=== PATIENT | male | born 1980 | race Caucasian/White ===

== ENCOUNTER 2020-11-17 17:04 | Emergency (ER) | payer BC, OTHER ==
[2020-11-17] MEDS ORDERED: Acetaminophen/oxyCODONE 325-5 MG Tab PO ONE (17:22)
--- NOTE | 2020-11-17 17:24 | EDM.PDOC ---
ED HPI GENERAL MEDICAL PROBLEM - General Chief Complaint: Upper Extremity Injury/Pain Stated Complaint: RT ARM INJURY Time Seen by Provider: 11/17/20 17:12 Source of Information: Reports: Patient History Limitations: Reports: No Limitations - History of Present Illness INITIAL COMMENTS - FREE TEXT/NARRATIVE: 39-year-old male presents today for right shoulder pain. Patient dates he was at work he tripped over a beam and as she landed on his left side but somehow his right shoulder is hurting patient states that he cannot move the right shoulder and stuck above his head. Patient did not directly landed on her arm have any injuries to it. Patient has sensation arm able to move his elbow down with his fingers has pain when trying to raise the shoulder. Patient has any o ther injuries Right Shoulder Pain Score (Numeric/FACES): 10 - Related Data Allergies Allergy/AdvReac Type Severity Reaction Status Date / Time Penicillins Allergy Hives Verified 11/17/20 17:44 Home Meds: Home Meds . [No Known Home Meds] 11/17/20 [History] Review of Systems - Review of Systems Review Of Systems: See Below Constitutional: Reports: No Symptoms Eyes: Reports: No Symptoms Ears: Reports: No Symptoms Nose: Reports: No Symptoms Mouth/Throat: Reports: No Symptoms Respiratory: Reports: No Symptoms Cardiovascular: Reports: No Symptoms GI/Abdominal: Reports: No Symptoms Genitourinary: Reports: No Symptoms Musculoskeletal: Reports: Shoulder Pain Skin: Reports: No Symptoms Neurological: Reports: No Symptoms Psychiatric: Reports: No Symptoms ED EXAM, GENERAL - Physical Exam Exam: See Below Exam Limited By: No Limitations General Appearance: Alert, WD/WN, No Apparent Distress Respiratory/Chest: No Respiratory Distress, Lungs Clear Cardiovascular: Normal Peripheral Pulses, Regular Rate, Rhythm Extremities: No: Normal Range of Motion, Non-Tender Neurological: Alert, Oriented ED TRAUMA EXTREMITY PROCEDURES - Joint Reduction Right Shoulder Sedation: Conscious Sedation Pre-Procedure NV Status: Normal Post-Procedure NV Status: Normal Technique: Other Post-Reduction Imaging: Completely Reduced Joint Reduction Complications: No Course - Vital Signs Last Recorded V/S: Last Vital Signs Temp 208.8 F H 11/17/20 17:14 Pulse 89 11/17/20 17:14 Resp 20 11/17/20 17:14 BP 142/89 H 11/17/20 17:14 Pulse Ox 99 11/17/20 17:14 - Orders/Labs/Meds Orders: Active Orders 24 hr Category Date Time Status Shoulder Comp Rt [CR] Stat Exams 11/17/20 18:59 Ordered Meds: Medications Discontinued Medications Generic Name Dose Route Start Last Admin Trade Name Jennifer PRN Reason Stop Dose Admin Fentanyl Confirm 11/17/20 18:41 Fentanyl 250 Mcg/5 Ml Sdv Administered 11/17/20 18:42 Dose 250 mcg .ROUTE .STK-MED ONE Hydromorphone HCl Confirm 11/17/20 18:41 Hydromorphone 2 Mg/Ml Syringe Administered 11/17/20 18:42 Dose 2 mg .ROUTE .STK-MED ONE Lidocaine Confirm 11/17/20 18:41 Lidocaine 2% 5 Ml Sdv Administered 11/17/20 18:42 Dose 5 ml .ROUTE .STK-MED ONE Midazolam HCl Confirm 11/17/20 18:41 Midazolam 1 Mg/Ml 2 Ml Sdv Administered 11/17/20 18:42 Dose 2 mg .ROUTE .STK-MED ONE Oxycodone/Acetaminophen 1 tab 11/17/20 17:22 11/17/20 17:52 Acetaminophen/Oxycodone 325-5 Mg Tab PO 11/17/20 17:23 1 tab ONETIME ONE Administration Propofol Confirm 11/17/20 18:41 Propofol 200 Mg/20 Ml Sdv Administered 11/17/20 18:42 Dose 400 mg .ROUTE .STK-MED ONE - Re-Assessments/Exams Free Text/Narrative Re-Assessment/Exam: 11/17/20 19:03 What you are ordering right arm sling Why you are ordering it support after eduction How it will benefit patient support and pain relief How long is patient to use it 5days Departure - Departure Time of Disposition: 19:02 Disposition: Still A Patient 30 Condition: Good Clinical Impression: Shoulder dislocation - Discharge Information *PRESCRIPTION DRUG MONITORING PROGRAM REVIEWED*: Not Applicable *COPY OF PRESCRIPTION DRUG MONITORING REPORT IN PATIENT MEENA: Not Applicable Instructions: Shoulder Dislocation, [id number] Forms: ED Department Discharge Additional Instructions: The following information is given to patients seen in the emergency department who are being discharged to home. This information is to outline your options for follow-up care. We provide all patients seen in our emergency department with a follow-up referral. The need for follow-up, as well as the timing and circumstances, are variable depending upon the specifics of your emergency department visit. If you don't have a primary care physician on staff, we will provide you with a referral. We always advise you to contact your personal physician following an emergency department visit to inform them of the circumstance of the visit and for follow-up with them and/or the need for any referrals to a consulting specialist. The emergency department will also refer you to a specialist when appropriate. This referral assures that you have the opportunity for follow-up care with a specialist. All of these measure are taken in an effort to provide you with optimal care, which includes your follow-up. Under all circumstances we always encourage you to contact your private physician who remains a resource for coordinating your care. When calling for follow-up care, please make the office aware that this follow-up is from your recent emergency room visit. If for any reason you are refused follow-up, please contact the [facility] Emergency Department at and asked to speak to the emergency department charge nurse. Please follow up with your primary care physician. If you do not have a primary care physician, see below: [facility] [address] [place] [id number] [facility] [address] [place] [id number] You were seen today for dislocation of your shoulder we were able to reduce it by giving you some medication which had a sling. Repeat x-rays show that you have a good position. We will place you in a sling. Will to follow with orthopedic doctors and your primary care physician. You have any numbness tingling to your arm please return to the ED. Sepsis Event Note (ED) - Evaluation Sepsis Screening Result: No Definite Risk - Focused Exam Vital Signs: Vital Signs Temp Pulse Resp BP Pulse Ox 11/17/20 17:14 208.8 F H 89 20 142/89 H 99 - My Orders Last 24 Hours: My Active Orders 11/17/20 18:59 Shoulder Comp Rt [CR] Stat - Assessment/Plan Last 24 Hours: My Active Orders 11/17/20 18:59 Shoulder Comp Rt [CR] Stat Plan: Patient is a 39-year-old presents today for right shoulder pain. Patient states he fell on the left side with some mild right arm stuck above his head. Will obtain x-ray provide pain control and reassess.
--- NOTE | 2020-11-17 18:30 | CR ---
Indication: Shoulder pain, deformity, possible dislocation Technique: Three views of the right shoulder Comparison: None Findings/Impression: There is anterior dislocation of the humeral head from the glenoid fossa, best demonstrated on the axillary view. No underlying fracture is appreciated, although suboptimal positioning somewhat limits assessment. Follow-up three-views recommended following reduction. Dictated by Briseyda Alston MD @ Nov 17 2020 6:25PM Signed by Dr. Briseyda Alston @ Nov 17 2020 6:28PM
[2020-11-17] MEDS ORDERED: Propofol 200 MG/20 ML SDV ONE (18:41)
[2020-11-17] MEDS ORDERED: fentaNYL 250 MCG/5 ML SDV ONE (18:41)
[2020-11-17] MEDS ORDERED: Midazolam 1 MG/ML 2 ML SDV ONE (18:41)
[2020-11-17] MEDS ORDERED: Lidocaine 2% 5 ML SDV ONE (18:41)
[2020-11-17] MEDS ORDERED: HYDROmorphone 2 MG/ML Syringe ONE (18:41)
--- NOTE | 2020-11-17 18:49 | PCM.PREANE ---
Preanesthetic Assessment - Procedure Proposed Procedure: MAC sedation for closed reduction of shoulder dislocation - Anesthesia/Transfusion/Family Hx Anesthesia History: Prior Anesthesia Without Reaction (Previous brain surgery without anesthesia complications) Family History of Anesthesia Reaction: No Transfusion History: Unknown (Pt states he may have, but doesn't remember) Intubation History: Unknown (Denies history of sore throat after anesthesia, denies known difficult airway) - Review of Systems General: No Symptoms Pulmonary: No Symptoms Cardiovascular: No Symptoms Gastrointestinal: No Symptoms Neurological: No Symptoms, Seizure (History of seizures, took his medication at lunchtime) Other: Reports: None (Acute right shoulder pain) - Physical Assessment NPO Status Date: 11/17/20 NPO Status Time: 13:00 Vital Signs: Last Vital Signs Temp 98.2 C H 11/17/20 17:14 Pulse 89 11/17/20 17:14 Resp 20 11/17/20 17:14 BP 142/89 H 11/17/20 17:14 Pulse Ox 99 11/17/20 17:14 Height: 1.83 m Weight: 90.718 kg ASA Class: 2 Mental Status: Alert & Oriented x3 Dentition: Reports: Normal Dentition Thyro-Mental Finger Breadths: 3 Mouth Opening Finger Breadths: 3 ROM/Head Extension: Full Lungs: Clear to Auscultation, Normal Respiratory Effort Cardiovascular: Regular Rate, Regular Rhythm - Allergies Allergies/Adverse Reactions: Allergies Allergy/AdvReac Type Severity Reaction Status Date / Time Penicillins Allergy Hives Verified 11/17/20 17:44 - Anesthesia Plan Free Text/Narrative:: Plan for sedation discussed with patient and ER MD. All questions answered and concerns addressed, discussed risks/benefits/alternatives. Consent signed by patient and witnessed by RN - Acknowledgements Anesthesia Type Planned: MAC Pt an Appropriate Candidate for the Planned Anesthesia: Yes Alternatives and Risks of Anesthesia Discussed w Pt/Guardian: Yes Pt/Guardian Understands and Agrees with Anesthesia Plan: Yes PreAnesthesia Questionnaire HEENT History: Reports: None Cardiovascular History: Reports: None Respiratory History: Reports: None Gastrointestinal History: Reports: None Genitourinary History: Reports: None Musculoskeletal History: Reports: None Neurological History: Reports: Seizure Psychiatric History: Reports: None Endocrine/Metabolic History: Reports: None Hematologic History: Reports: None Immunologic History: Reports: None Oncologic (Cancer) History: Reports: None Dermatologic History: Reports: None - Infectious Disease History Infectious Disease History: Reports: Chicken Pox - Past Surgical History Head Surgeries/Procedures: Reports: None Cardiovascular Surgical History: Reports: None GI Surgical History: Reports: None Neurological Surgical History: Reports: None - SUBSTANCE USE Tobacco Use Within Last Twelve Months: Cigarettes Recreational Drug Type: Reports: Marijuana/Hashish - HOME MEDS Home Medications: Home Meds . [No Known Home Meds] 11/17/20 [History] - CURRENT (IN HOUSE) MEDS Current Meds: Current Medications Discontinued Medications Fentanyl (Fentanyl 250 Mcg/5 Ml Sdv) Confirm Administered Dose 250 mcg .ROUTE .STK-MED ONE Stop: 11/17/20 18:42 Hydromorphone HCl (Hydromorphone 2 Mg/Ml Syringe) Confirm Administered Dose 2 mg .ROUTE .STK-MED ONE Stop: 11/17/20 18:42 Lidocaine (Lidocaine 2% 5 Ml Sdv) Confirm Administered Dose 5 ml .ROUTE .STK-MED ONE Stop: 11/17/20 18:42 Midazolam HCl (Midazolam 1 Mg/Ml 2 Ml Sdv) Confirm Administered Dose 2 mg .ROUTE .STK-MED ONE Stop: 11/17/20 18:42 Oxycodone/Acetaminophen (Acetaminophen/Oxycodone 325-5 Mg Tab) 1 tab PO ONETIME ONE Stop: 11/17/20 17:23 Last Admin: 11/17/20 17:52 Dose: 1 tab Documented by: Propofol (Propofol 200 Mg/20 Ml Sdv) Confirm Administered Dose 400 mg .ROUTE .STK-MED ONE Stop: 11/17/20 18:42
--- NOTE | 2020-11-17 19:42 | PCM.SN.2 ---
- Free Text/Narrative Note: Anesthesia time 1838- 1925 MAC sedation for closed reduction of shoulder dislocation as requested by Dr. Gamez. [id number]: Pt interview, H&P. Discussed risks/benefits/alternatives of MAC anesthesia. Pt consented with RN witness. ER MD agrees to anesthetic plan. 1849: ED RN and MD bedside. 5-lead EKG, cont. pulse ox., NC at 6L with ETCO2, and NIBP on LUE cycled every 3 min during procedure, every 5 min after. NS to peripheral IV (left). 1854: baseline VS BP 150/98, HR 88, SAT 96%, NSR. 1857: 2mg versed and 100 mcg fentanyl given IV 1858: 50mg propofol IV 1900: Procedure start 1902: Procedure end Total IVF 100ml. Pt maintained spontaneous ventilation with ETCO2 and stable VS throughout. VS as follows: 0 BP 155/99, HR 87, SAT 95%, NSR 1902 BP 149/99, HR 90, SAT 94%, NSR 1904 BP 144/105, HR 90, SAT 96%, NSR 1909 BP 142/90, HR 93, SAT 94%, NSR (Pt awake and verbal) 1914 BP 138/97, HR 94, SAT 97%, NSR 1919 BP 128/89, HR 84, SAT 96%, NSR (Alert and oriented x 3) 1924 BP 140/85, HR 92, SAT 96%, NSR 1925: Full report given to ED RN and MD for transfer of care.
--- NOTE | 2020-11-17 20:14 | CR ---
INDICATION: Post reduction right shoulder. COMPARISON: Radiographic exam of the right shoulder same day. TECHNIQUE: Two view study right shoulder. FINDINGS: No evidence of dislocation identified at this time. Hill-Sachs defect identified secondary to recurrent anterior dislocation. IMPRESSION: 1. No dislocation at this time. 2. Hill-Sachs defect secondary to recurrent anterior dislocation. Dictated by Corbin Burr MD @ Nov 17 2020 8:11PM Signed by Dr. Corbin Burr @ Nov 17 2020 8:14PM
== END 2020-11-17 20:54 | disposition still patient (30) ==
LOC: MW.ED 17:04
DX: S43.014A Anterior dislocation of right humerus, initial encounter (principal); Z88.0 Allergy status to penicillin; W01.0XXA Fall on same level from slipping, tripping and stumbling without subsequent striking against object, initial encounter; Y99.0 Civilian activity done for income or pay
CPT/HCPCS: 23650; 73030; 99152; 99283; A9270; J2250; J2704; J3010; 01620; J1170

== ENCOUNTER 2022-05-24 08:23 | Emergency (ER) | payer OTHER ==
[2022-05-24] MEDS ORDERED: Ketorolac 30 MG/ML SDV IM STA (09:08)
== END 2022-05-24 11:55 | disposition home or self-care (01) ==
LOC: MW.ED 08:23
DX: S62.001A Unspecified fracture of navicular [scaphoid] bone of right wrist, initial encounter for closed fracture (principal); S80.811A Abrasion, right lower leg, initial encounter; R56.9 Unspecified convulsions; Z72.0 Tobacco use; Z88.0 Allergy status to penicillin; Z79.899 Other long term (current) drug therapy; W11.XXXA Fall on and from ladder, initial encounter; Y92.89 Other specified places as the place of occurrence of the external cause; Y99.0 Civilian activity done for income or pay
CPT/HCPCS: 73110; 73130; 73590; 96372; 99283; J1885

== ENCOUNTER 2023-12-23 20:12 | Emergency (ER) | payer SELFPAY | END 2023-12-23 21:10 | disposition left against medical advice (07) | LOC: MW.ED 20:12 | DX: M24.411 Recurrent dislocation, right shoulder (principal); W10.9XXA Fall (on) (from) unspecified stairs and steps, initial encounter; Y93.01 Activity, walking, marching and hiking; Z79.899 Other long term (current) drug therapy; Z88.0 Allergy status to penicillin; Z75.8 Other problems related to medical facilities and other health care | CPT/HCPCS: 23650; 73030-RT; 99283; 99283-25 ==

== ENCOUNTER 2023-12-31 08:52 | Emergency (ER) | payer SELFPAY ==
[2023-12-31] MEDS: Ondansetron 4 MG/2 ML SDV IVPUSH ONE (09:17)
[2023-12-31] MEDS: HYDROmorphone 1 MG/ML Syringe IVPUSH ONE ×2 (09:17→09:37)
[2023-12-31] MEDS: Propofol 200 MG/20 ML SDV IVPUSH ONE ×2 (10:29)
== END 2023-12-31 11:55 | disposition home or self-care (01) ==
LOC: MW.ED 08:52
DX: S43.004A Unspecified dislocation of right shoulder joint, initial encounter (principal); Z88.0 Allergy status to penicillin; Z79.899 Other long term (current) drug therapy; Z75.8 Other problems related to medical facilities and other health care; W22.8XXA Striking against or struck by other objects, initial encounter
CPT/HCPCS: 23650; 73030; 96374; 96375; 99152; 99283; J1170; J2405; J2704; 99284

== ENCOUNTER 2024-02-07 01:43 | Emergency (ER) | payer SELFPAY ==
[2024-02-07] MEDS: Propofol 200 MG/20 ML SDV IVPUSH ONE ×2 (02:58→03:50)
[2024-02-07] MEDS: Propofol 200 MG/20 ML SDV ONE (03:44)
[2024-02-07] MEDS: Ketamine 500 mg/10 ML MDV IV ONE (03:45)
[2024-02-07] MEDS: Propofol 200 MG/20 ML SDV IVPUSH STA (03:48)
[2024-02-07] MEDS: Ketamine 500 mg/10 ML MDV IV STA (03:51)
[2024-02-07] MEDS: Ketamine 500 mg/10 ML MDV IM ONE (03:51)
== END 2024-02-07 05:03 | disposition home or self-care (01) ==
LOC: MW.ED 01:43
DX: M24.411 Recurrent dislocation, right shoulder (principal); Z88.0 Allergy status to penicillin
CPT/HCPCS: 23650; 73030; 99152; 99153; 99283; J2704; J3490; 99284

== ENCOUNTER 2024-02-08 11:09 | Emergency (ER) | payer SELFPAY ==
[2024-02-08] MEDS: Sodium Chloride 0.9% 2.5 ML Syringe FLUSH PRN (11:37)
[2024-02-08] MEDS: Ondansetron 4 MG/2 ML SDV IVPUSH ONE (11:37)
[2024-02-08] MEDS: Sodium Chloride 0.9% 10 ML Syringe FLUSH PRN (11:37)
[2024-02-08] MEDS: HYDROmorphone 1 MG/ML Syringe IVPUSH ONE (11:37)
[2024-02-08 11:46] LABS: HEMATOCRIT 44.9 % (42.0-52.0); HEMOGLOBIN 15.6 g/dL (14.0-18.0); MEAN CORPUSCULAR HEMOGLOBIN 30.5 pg (28.0-32.0); MEAN CORPUSCULAR HGB CONC 34.7 g/dL (32.0-36.0); MEAN CORPUSCULAR VOLUME 87.7 fL (83.0-99.0); MEAN PLATELET VOLUME 9.7 fL (9.4-12.4); PLATELET COUNT,PLT 361 K/uL (150-400); RED BLOOD CELL COUNT 5.12 M/uL (4.52-5.90); WHITE BLOOD CELL COUNT,WBC 14.75 K/uL (3.9-11.3)
[2024-02-08 11:59] LABS: EOSINOPHILS ABSOLUTE MAN 0.44 K/uL (0.00-0.45); EOSINOPHILS PERCENT MAN 3 % (0-6); LYMPHOCYTES ABSOLUTE MAN 3.98 K/uL (1.00-4.80); LYMPHOCYTES PERCENT MAN 27 % (24-44); MONOCYTES ABSOLUTE MAN 1.77 K/uL (0.00-0.80); MONOCYTES PERCENT MAN 12 % (0-8); SEG NEUTROPHILS ABSOLUTE MAN 8.56 K/uL (1.80-7.70); SEG NEUTROPHILS PERCENT MAN 58 % (41-71)
[2024-02-08 12:01] LABS: CALCIUM 9.2 mg/dL (8.5-10.1); CARBON DIOXIDE,CO2 27.2 mmol/L (21.0-32.0); CREATININE 1.1 mg/dL (0.8-1.3); EST CRCL DRUG DOSING (CG) 96.02 mL/min
[2024-02-08] MEDS: HYDROmorphone 0.5 MG/0.5 ML Syringe IVPUSH ONE (12:14)
[2024-02-08] MEDS: Sodium Chloride 0.9% 1,000 ML IV ONE (12:52)
[2024-02-08] MEDS: Propofol 200 MG/20 ML SDV IVPUSH ONE ×2 (12:53→13:42)
== END 2024-02-08 14:17 | disposition home or self-care (01) ==
LOC: MW.ED 11:09
DX: M24.411 Recurrent dislocation, right shoulder (principal); Z88.0 Allergy status to penicillin
CPT/HCPCS: 23650; 36415; 73020; 80048; 85025; 96374; 96375; 96376; 99152; 99283; J1170; J2405; J2704; J3490; J7030

== ENCOUNTER 2024-02-20 11:47 | Emergency (ER) | payer SELFPAY ==
[2024-02-20 12:20] LABS: BASOPHILS PERCENT AUTO 0.8 % (0.0-1.0); EOSINOPHILS ABSOLUTE AUTO 0.21 K/uL (0.00-0.45); EOSINOPHILS PERCENT AUTO 1.6 % (0.0-6.0); HEMATOCRIT 49.6 % (42.0-52.0); HEMOGLOBIN 16.7 g/dL (14.0-18.0); IMMATURE GRAN ABSOLUTE AUTO 0.13 K/uL (0.00-0.05); LYMPHOCYTES ABSOLUTE AUTO 4.95 K/uL (1.00-4.80); LYMPHOCYTES PERCENT AUTO 37.7 % (24.0-44.0); MEAN CORPUSCULAR HEMOGLOBIN 30.6 pg (28.0-32.0); MEAN CORPUSCULAR HGB CONC 33.7 g/dL (32.0-36.0); MEAN CORPUSCULAR VOLUME 90.8 fL (83.0-99.0); MEAN PLATELET VOLUME 9.9 fL (9.4-12.4); MONOCYTES ABSOLUTE AUTO 1.37 K/uL (0.00-0.80); MONOCYTES PERCENT AUTO 10.4 % (0.0-8.0); NEUTROPHILS ABSOLUTE AUTO 6.38 K/uL (1.80-7.70); NEUTROPHILS PERCENT AUTO 48.5 % (41.0-71.0); PLATELET COUNT,PLT 460 K/uL (150-400); RED BLOOD CELL COUNT 5.46 M/uL (4.52-5.90); WHITE BLOOD CELL COUNT,WBC 13.14 K/uL (3.9-11.3)
[2024-02-20] MEDS: Sodium Chloride 0.9% 1,000 ML IV ONE (12:31)
[2024-02-20 12:49] LABS: A/G RATIO 1.1 (0.9-1.6); ALANINE AMINOTRANSFERASE,ALT 41 IU/L (14-63); ALBUMIN 4.2 g/dL (3.4-5.0); ALKALINE PHOSPHATASE 60 U/L (46-116); ASPARTATE AMNIOTRANSFERASE,AST 27 IU/L (15-37); BILIRUBIN TOTAL 0.8 mg/dL (0.2-1.0); BLOOD UREA NITROGEN,BUN 15 mg/dL (7.0-18.0); CALCIUM 9.1 mg/dL (8.5-10.1); CARBON DIOXIDE,CO2 18.3 mmol/L (21.0-32.0); CHLORIDE,CL 101 mmol/L (98-107); CREATINE KINASE,CK 215 U/L (26-308); CREATININE 1.5 mg/dL (0.8-1.3); EST CRCL DRUG DOSING (CG) 70.41 mL/min; ETHANOL BLOOD MEDICAL <3 mg/dL; GLUCOSE RANDOM 107 mg/dL (74-106); MAGNESIUM 2.5 mg/dL (1.8-2.4); POTASSIUM,K 3.9 mmol/L (3.5-5.1); SODIUM,NA 140 mmol/L (136-148)
[2024-02-20 12:52] LABS: ESTIMATED GFR 59 mL/min (>60)
[2024-02-20] MEDS: LORazepam 2 MG/ML SDV IVPUSH ONE (13:51)
[2024-02-20 14:47] LABS: APPEARANCE,URINE CLEAR; BILIRUBIN,URINE NEGATIVE (NEGATIVE); COLOR,URINE YELLOW; GLUCOSE,URINE NEGATIVE (NEGATIVE); KETONES,URINE NEGATIVE (NEGATIVE); LEUKOCYTE ESTERASE,URINE NEGATIVE (NEGATIVE); NITRITE,URINE NEGATIVE (NEGATIVE); OCCULT BLOOD,URINE TRACE-INTACT (NEGATIVE); PROTEIN,URINE NEGATIVE (NEGATIVE); UROBILINOGEN,URINE 0.2 EU/dL (<2.0)
[2024-02-20 14:54] LABS: BACTERIA,URINE FEW (NEGATIVE); EPITHELIAL CELLS,URINE OCCASIONAL (NONE-FEW); RBC,URINE 0-2 (0-2/HPF); WBC,URINE 0-2 (0-5/HPF)
[2024-02-20 14:57] LABS: AMPHETAMINES SCREEN, URINE PRESUMPTIVE POSITIVE (CUTOFF=500); BARBITURATE SCREEN,URINE NEGATIVE (CUTOFF=200); BENZODIAZEPINES SCREEN,URINE NEGATIVE (CUTOFF=150); BUPRENORPHINE SCREEN,URINE NEGATIVE (CUTOFF=10); METHADONE SCREEN, URINE NEGATIVE (CUTOFF=200); METHAMPHETAMINES SCREEN, URINE PRESUMPTIVE POSITIVE (CUTOFF=500); OXYCODONE SCREEN,URINE NEGATIVE (CUT0FF=100); PCP SCREEN,URINE NEGATIVE (CUTOFF=25); THC SCREEN,URINE 20 NG/ML PRESUMPTIVE POSITIVE (CUTOFF=50)
== END 2024-02-20 16:26 | disposition home or self-care (01) ==
LOC: MW.ED 11:47
DX: G40.909 Epilepsy, unspecified, not intractable, without status epilepticus (principal); F17.210 Nicotine dependence, cigarettes, uncomplicated; Z75.8 Other problems related to medical facilities and other health care; Z88.0 Allergy status to penicillin
CPT/HCPCS: 36415; 70450; 80053; 80305; 80307; 81001; 82550; 83735; 84484; 85025; 96361; 96374; 96375; 99285; J1953; J2060; J7030; J7060; 99284

== ENCOUNTER 2024-06-01 11:18 | Emergency (ER) | payer SELFPAY ==
[2024-06-01] MEDS ORDERED: Sodium Chloride 0.9% 2.5 ML Syringe FLUSH PRN (11:32)
[2024-06-01 11:43] LABS: BASOPHILS ABSOLUTE AUTO 0.11 K/uL (0.00-0.20); BASOPHILS PERCENT AUTO 0.9 % (0.0-1.0); EOSINOPHILS ABSOLUTE AUTO 0.27 K/uL (0.00-0.45); EOSINOPHILS PERCENT AUTO 2.2 % (0.0-6.0); HEMATOCRIT 48.8 % (42.0-52.0); HEMOGLOBIN 16.2 g/dL (14.0-18.0); IMMATURE GRAN ABSOLUTE AUTO 0.08 K/uL (0.00-0.05); IMMATURE GRAN PERCENT AUTO 0.7 % (0.0-0.4); LYMPHOCYTES ABSOLUTE AUTO 5.12 K/uL (1.00-4.80); LYMPHOCYTES PERCENT AUTO 42.1 % (24.0-44.0); MEAN CORPUSCULAR HEMOGLOBIN 30.6 pg (28.0-32.0); MEAN CORPUSCULAR HGB CONC 33.2 g/dL (32.0-36.0); MEAN CORPUSCULAR VOLUME 92.2 fL (83.0-99.0); MEAN PLATELET VOLUME 9.9 fL (9.4-12.4); MONOCYTES ABSOLUTE AUTO 1.54 K/uL (0.00-0.80); MONOCYTES PERCENT AUTO 12.7 % (0.0-8.0); NEUTROPHILS ABSOLUTE AUTO 5.03 K/uL (1.80-7.70); NEUTROPHILS PERCENT AUTO 41.4 % (41.0-71.0); PLATELET COUNT,PLT 386 K/uL (150-400); RED BLOOD CELL COUNT 5.29 M/uL (4.52-5.90); WHITE BLOOD CELL COUNT,WBC 12.15 K/uL (3.9-11.3)
[2024-06-01 11:52] LABS: A/G RATIO 1.3 (0.9-1.6); ALBUMIN 4.2 g/dL (3.4-5.0); BILIRUBIN TOTAL 1.2 mg/dL (0.2-1.0); CALCIUM 9.2 mg/dL (8.5-10.1); CARBON DIOXIDE,CO2 18.8 mmol/L (21.0-32.0); CREATININE 1.5 mg/dL (0.8-1.3); EST CRCL DRUG DOSING (CG) 70.41 mL/min; POTASSIUM,K 3.9 mmol/L (3.5-5.1); PROTEIN TOTAL,TP 7.4 g/dL (6.4-8.2)
[2024-06-01] MEDS: Sodium Chloride 0.9% 10 ML Syringe FLUSH PRN (12:07)
== END 2024-06-01 12:58 | disposition home or self-care (01) ==
LOC: MW.ED 11:18
DX: R56.9 Unspecified convulsions (principal); Z88.0 Allergy status to penicillin; Z75.8 Other problems related to medical facilities and other health care
CPT/HCPCS: 36415; 80053; 85025; 93005; 96365; 99284; J1953; J3490; J7060; 93010; 99282

== ENCOUNTER 2025-05-16 14:43 | Emergency (ER) | payer SELFPAY ==
[2025-05-16 15:02] LABS: BASOPHILS ABSOLUTE AUTO 0.09 K/uL (0.00-0.20); BASOPHILS PERCENT AUTO 0.7 % (0.0-1.0); EOSINOPHILS ABSOLUTE AUTO 0.12 K/uL (0.00-0.45); EOSINOPHILS PERCENT AUTO 0.9 % (0.0-6.0); IMMATURE GRAN ABSOLUTE AUTO 0.13 K/uL (0.00-0.05); IMMATURE GRAN PERCENT AUTO 1.0 % (0.0-0.4); LYMPHOCYTES ABSOLUTE AUTO 2.99 K/uL (1.00-4.80); LYMPHOCYTES PERCENT AUTO 22.1 % (24.0-44.0); MEAN PLATELET VOLUME 10.1 fL (9.4-12.4); MONOCYTES ABSOLUTE AUTO 1.31 K/uL (0.00-0.80); MONOCYTES PERCENT AUTO 9.7 % (0.0-8.0); NEUTROPHILS ABSOLUTE AUTO 8.92 K/uL (1.80-7.70); NEUTROPHILS PERCENT AUTO 65.6 % (41.0-71.0); NRBC ABSOLUTE 0.00 K/uL (0.00-0.02); NRBC PERCENT 0.0 /100WBC (0.0-0.2); PLATELET COUNT,PLT 307 K/uL (150-400); RED BLOOD CELL COUNT 5.16 M/uL (4.52-5.90); WHITE BLOOD CELL COUNT,WBC 13.56 K/uL (3.9-11.3)
[2025-05-16] MEDS: levETIRAcetam 500 MG/5 ML SDV IVPUSH ONE (15:11)
[2025-05-16 15:18] LABS: INR 0.95 (0.86-1.11)
[2025-05-16 15:33] LABS: A/G RATIO 1.2 (0.9-1.6); ALANINE AMINOTRANSFERASE,ALT 130 IU/L (14-63); ASPARTATE AMNIOTRANSFERASE,AST 103 IU/L (15-37); BILIRUBIN TOTAL 1.6 mg/dL (0.2-1.0); BLOOD UREA NITROGEN,BUN 12 mg/dL (7.0-18.0); CARBON DIOXIDE,CO2 20.5 mmol/L (21.0-32.0); CHLORIDE,CL 102 mmol/L (98-107); CREATININE 1.4 mg/dL (0.8-1.3); EST CRCL DRUG DOSING (CG) 74.67 mL/min; ETHANOL BLOOD MEDICAL <3 mg/dL; GLUCOSE RANDOM 116 mg/dL (74-106); POTASSIUM,K 5.8 mmol/L (3.5-5.1); PROTEIN TOTAL,TP 7.7 g/dL (6.4-8.2); SODIUM,NA 137 mmol/L (136-148)
[2025-05-16 15:36] LABS: ESTIMATED GFR 64 mL/min (>60)
== END 2025-05-16 16:06 | disposition home or self-care (01) ==
LOC: MW.ED 14:43
DX: S61.412A Laceration without foreign body of left hand, initial encounter (principal); F15.10 Other stimulant abuse, uncomplicated; R56.9 Unspecified convulsions; E87.5 Hyperkalemia; R74.01 Elevation of levels of liver transaminase levels; N18.9 Chronic kidney disease, unspecified; Z88.0 Allergy status to penicillin; Z79.899 Other long term (current) drug therapy; X58.XXXA Exposure to other specified factors, initial encounter
CPT/HCPCS: 12002; 36415; 70450; 71045; 72125; 80053; 80307; 85025; 85610; 93005; 96374; 99285; A9270; J1953; 93010; 99284